=== PATIENT | female | born 1960 | race African-American/Black ===

== ENCOUNTER 2017-02-27 13:55 | Emergency (ER) | payer MEDICARE, MEDICAID ==
[~2017-02-27] VITALS: Ht 165.1 cm; Wt 72.0 kg
[2017-02-27] MEDS ORDERED: ACETAMINOPHEN 325MG TABLET PO STA (14:54)
[2017-02-27 15:18] LABS: CHLORIDE 103 mEq/L (98-107)
[2017-02-27 15:20] LABS: BASOPHILS % 0.7 % (0.0-2.0); EOSINOPHILS % 0.8 % (0.0-5.0); HEMATOCRIT. 38.6 % (36.0-48.0); HEMOGLOBIN. 12.5 g/dL (12.0-16.0); LYMPHOCYTES % 23.7 % (20.0-50.0); MEAN CORPUSCULAR HEMOGLOBIN 31.8 pg (28.0-32.0); MEAN CORPUSCULAR VOLUME 98.3 fL (81.0-99.0); MEAN PLATELET VOLUME 7.4 fl (7.4-10.4); MONOCYTES % 8.4 % (2.0-8.0); NEUTROPHILS % 66.4 % (40.0-76.0); PLATELET 290 x1000/uL (130-400); RED BLOOD CELL COUNT 3.92 mill/uL (4.2-5.4); RED CELL DISTRIBUTION WIDTH 13.9 % (11.6-14.6)
[2017-02-27 15:27] LABS: CARBON DIOXIDE 32 mEq/L (21-32)
[2017-02-27 15:47] LABS: HCG SCREEN NEGATIVE
[2017-02-27 16:34] VITALS: BP 144/72
== END 2017-02-27 16:38 | disposition home or self-care (01) ==
LOC: ER 14:09
DX: R10.9 Unspecified abdominal pain (principal); E11.9 Type 2 diabetes mellitus without complications
CPT/HCPCS: 36415; 80053; 84703; 85025; 99284

== ENCOUNTER 2023-03-10 14:39 | Inpatient (IN) | payer MEDICARE, MEDICAID ==
[~2023-03-10] VITALS: Ht 162.6 cm; Wt 44.0 kg
[~2023-03-10 14:39] MED LIST: APIX2.5T PO; APIX5TAB PO; ASPI-1406 MT
[2023-03-10 16:18] LABS: BASOPHILS % 0.7 % (0.0-2.0); DIFFERENTIAL COMMENT 0; EOSINOPHILS % 0.1 % (0.0-5.0); HEMATOCRIT. 38.8 % (36.0-48.0); HEMOGLOBIN. 12.1 g/dL (12.0-16.0); LYMPHOCYTES % 7.5 % (20.0-50.0); MEAN CORPUSCULAR HEMOGLOBIN 31.9 pg (28.0-32.0); MEAN CORPUSCULAR HGB CONC 31.3 g/dL (31.0-37.0); MEAN CORPUSCULAR VOLUME 101.9 fL (81.0-99.0); MEAN PLATELET VOLUME 7.7 fl (7.4-10.4); MONOCYTES % 2.8 % (2.0-8.0); NEUTROPHILS % 88.9 % (40.0-76.0); PLATELET 352 x1000/uL (130-400); RED BLOOD CELL COUNT 3.81 mill/uL (4.2-5.4); WHITE BLOOD COUNT 7.2 x1000/uL (4.5-11.0)
[2023-03-10 16:54] LABS: ALANINE AMINOTRANSFERASE 13 IU/L (10-49); ALBUMIN 3.3 g/dL (3.2-4.8); ASPARTATE AMINOTRANSFERASE 20 IU/L (<34); BILIRUBIN TOTAL 0.6 mg/dL (0.1-1.0); CARBON DIOXIDE 26 mEq/L (21-32); CHLORIDE 104 mEq/L (98-107); CREATINE KINASE 64 IU/L (34-145); CREATININE 0.9 mg/dL (0.6-1.0); GLUCOSE 186 mg/dL (70-105); POTASSIUM 4.1 mEq/L (3.5-5.1); PROTEIN TOTAL 7.9 g/dL (6.0-8.3); SODIUM 138 mEq/L (136-145); UREA NITROGEN BLOOD 14 mg/dL (9-23)
[2023-03-10] MEDS ORDERED: ONDANSETRON HCL 4MG/2ML INJ IV PRN (21:15)
[2023-03-10] MEDS ORDERED: ACETAMINOPHEN 325MG TABLET PO PRN ×2 (21:15)
[2023-03-10] MEDS ORDERED: IPRATROPIUM/ALBUTEROL 0.5-3(2.5)MG/3ML NEB HHN PRN (21:15)
[2023-03-10] MEDS ORDERED: DEXTROSE 50% WATER 50ML SYRINGE IV PRN ×2 (21:30→22:15)
[2023-03-10] MEDS ORDERED: LORAZEPAM 2MG/ML INJ IV PRN (21:30)
[2023-03-10] MEDS: SODIUM CHLORIDE 0.9% 1,000 ML IV SCH (22:07)
[2023-03-10 22:30] LABS: CHOLESTEROL 147 mg/dL (<200); CREATINE KINASE 65 IU/L (34-145); HDL CHOLESTEROL 33 mg/dL (>65); IRON 41 ug/dL (50-170); LDL CHOLESTEROL 83 mg/dL (5-100); PHOSPHORUS 3.8 mg/dL (2.5-4.9); T4 FREE 1.39 ng/dL (0.89-1.76); THYROID STIMULATING HORMONE 3.64 uIU/mL (0.55-4.78); TOTAL IRON BINDING CAPACITY 169 ug/dl (250-425); TRIGLYCERIDE 70 mg/dL (0-150)
[2023-03-10] MEDS: ASCORBIC ACID 500 MG TABLET PO SCH (23:11)
[2023-03-10] MEDS: APIXABAN 5 MG TABLET PO SCH (23:12)
[2023-03-10] MEDS: ZINC SULFATE 220 MG ( 50 ) CAPSULE PO SCH (23:12)
[2023-03-11] MEDS: PANTOPRAZOLE 40MG DR TABLET PO SCH (07:50)
[2023-03-11] MEDS: BLOOD SUGAR DIAGNOSTIC STRIP TEST SCH ×4 (07:56→21:16)
[2023-03-11] MEDS: INSULIN LISPRO 100 UNITS/ML SUBCUT SCH ×4 (08:10→21:00)
[2023-03-11] MEDS ORDERED: INSULIN LISPRO 100 UNITS/ML SUBCUT SCH (08:20)
[2023-03-11 10:00] VITALS: BP 116/48; PULSE 50; RESP 14; TEMP 98.4
[2023-03-11 10:02] LABS: BASOPHILS % 0.5 % (0.0-2.0); EOSINOPHILS % 0.2 % (0.0-5.0); HEMATOCRIT. 32.5 % (36.0-48.0); HEMOGLOBIN. 10.7 g/dL (12.0-16.0); LYMPHOCYTES % 25.7 % (20.0-50.0); MEAN CORPUSCULAR HEMOGLOBIN 32.8 pg (28.0-32.0); MEAN CORPUSCULAR VOLUME 99.3 fL (81.0-99.0); MEAN PLATELET VOLUME 7.7 fl (7.4-10.4); MONOCYTES % 8.3 % (2.0-8.0); NEUTROPHILS % 65.3 % (40.0-76.0); PLATELET 319 x1000/uL (130-400); RED BLOOD CELL COUNT 3.27 mill/uL (4.2-5.4); RED CELL DISTRIBUTION WIDTH 14.2 % (11.6-14.6); WHITE BLOOD COUNT 3.8 x1000/uL (4.5-11.0)
[2023-03-11] MEDS: ASCORBIC ACID 500 MG TABLET PO SCH (10:17)
[2023-03-11] MEDS: ZINC SULFATE 220 MG ( 50 ) CAPSULE PO SCH (10:17)
[2023-03-11] MEDS: APIXABAN 5 MG TABLET PO SCH ×2 (10:17→17:30)
[2023-03-11 10:20] LABS: CARBON DIOXIDE 31 mEq/L (21-32); CHLORIDE 106 mEq/L (98-107); CREATININE 0.9 mg/dL (0.6-1.0); GLUCOSE 82 mg/dL (70-105); POTASSIUM 4.1 mEq/L (3.5-5.1); SODIUM 141 mEq/L (136-145); UREA NITROGEN BLOOD 13 mg/dL (9-23)
[2023-03-11 12:00] VITALS: BP 141/51; PULSE 55; RESP 20; TEMP 97.7
[2023-03-11 12:04] VITALS: BP 116/48; PULSE 50; RESP 14; TEMP 98.4
[2023-03-11] MEDS: SODIUM CHLORIDE 0.9% 1,000 ML IV SCH (12:23)
[2023-03-11 16:00] VITALS: BP 144/78; PULSE 70; RESP 20; TEMP 97.9
[2023-03-11] MEDS ORDERED: DONE5TAB33 PO ×2 (17:13→17:15)
[2023-03-11 17:26] LABS: FERRITIN 189 ng/mL (10-291); FOLIC ACID (FOLATE) SERUM 18.78 ng/mL (>5.38); VITAMIN B12 SERUM 767 pg/mL (211-911)
[2023-03-11 20:00] VITALS: BP 141/79; PULSE 82; RESP 18; TEMP 97.5
[2023-03-11] MEDS ORDERED: LEVETIRACETAM 500MG/5ML CUP PO SCH (21:00)
[2023-03-12] VITALS: BP 133/44; PULSE 60; RESP 20; TEMP 98
[2023-03-12 04:00] VITALS: BP 126/43; PULSE 54; RESP 18; TEMP 97.7
[2023-03-12] MEDS: SODIUM CHLORIDE 0.9% 1,000 ML IV SCH (05:08)
[2023-03-12] MEDS: INSULIN LISPRO 100 UNITS/ML SUBCUT SCH ×4 (05:31→20:42)
[2023-03-12] MEDS: BLOOD SUGAR DIAGNOSTIC STRIP TEST SCH ×4 (05:31→20:41)
[2023-03-12] MEDS: PANTOPRAZOLE 40MG DR TABLET PO SCH (05:33)
[2023-03-12 08:00] VITALS: BP 95/41; PULSE 62; RESP 17; TEMP 97.7
[2023-03-12] MEDS ORDERED: DEXTROSE 50% WATER 50ML SYRINGE IV NR (08:15)
[2023-03-12] MEDS ORDERED: LEVETIRACETAM 500 MG in SODIUM CHLORIDE 0.9% 100 ML IV SCH (08:15)
[2023-03-12] MEDS: DEXT 5%/0.9% NACL 1,000 ML IV SCH (08:51)
[2023-03-12] MEDS: ZINC SULFATE 220 MG ( 50 ) CAPSULE PO SCH (08:59)
[2023-03-12] MEDS: ASCORBIC ACID 500 MG TABLET PO SCH (08:59)
[2023-03-12] MEDS: APIXABAN 5 MG TABLET PO SCH ×2 (08:59→18:28)
[2023-03-12] MEDS: MIDODRINE HCL 5MG TABLET PO SCH ×3 (09:00→18:27)
[2023-03-12 09:23] LABS: BG BASE EXCESS 2.5 mmol/L (-2.0-2.0); BG CARBOXYHEMOGLOBIN 0.3 % (0.5-1.5); BG DEOXYHEMOGLOBIN 0.9 % (0.0-5.0); BG HCO3 ACT 26.9 mmol/L (22.0-26.0); BG METHEMOGLOBIN 0.1 % (0.0-1.5); BG OXYGEN SATURATION 99.1 % (92.0-98.5); BG OXYHEMOGLOBIN 98.7 % (94.0-97.0); BG PCO2 41.1 mmHg (35.0-45.0); BG PH 7.434 (7.350-7.450); BG PO2 220.9 mmHg (75.0-100.0)
[2023-03-12] MEDS: LEVETIRACETAM 500MG PREMIX 100 ML IV SCH ×2 (10:06→20:58)
[2023-03-12 10:55] LABS: BASOPHILS % 0.3 % (0.0-2.0); EOSINOPHILS % 1.7 % (0.0-5.0); HEMATOCRIT. 29.8 % (36.0-48.0); LYMPHOCYTES % 18.4 % (20.0-50.0); MEAN CORPUSCULAR HGB CONC 33.4 g/dL (31.0-37.0); MEAN CORPUSCULAR VOLUME 98.6 fL (81.0-99.0); MEAN PLATELET VOLUME 7.9 fl (7.4-10.4); MONOCYTES % 8.5 % (2.0-8.0); NEUTROPHILS % 71.1 % (40.0-76.0); PLATELET 303 x1000/uL (130-400); RED BLOOD CELL COUNT 3.02 mill/uL (4.2-5.4); RED CELL DISTRIBUTION WIDTH 13.7 % (11.6-14.6); WHITE BLOOD COUNT 5.5 x1000/uL (4.5-11.0)
[2023-03-12 12:00] VITALS: BP 113/48; PULSE 62; RESP 17; TEMP 98.1
[2023-03-12 13:13] LABS: CALCIUM 8.4 mg/dL (8.7-10.4); CARBON DIOXIDE 27 mEq/L (21-32); CHLORIDE 108 mEq/L (98-107); CREATINE KINASE 130 IU/L (34-145); CREATININE 0.8 mg/dL (0.6-1.0); GLUCOSE 130 mg/dL (70-105); POTASSIUM 3.4 mEq/L (3.5-5.1); SODIUM 142 mEq/L (136-145); UREA NITROGEN BLOOD 10 mg/dL (9-23)
[2023-03-12 16:00] VITALS: BP 111/42; PULSE 55; RESP 17; TEMP 97.8
[2023-03-12 20:00] VITALS: BP 126/38; PULSE 59; RESP 19; TEMP 97.5
[2023-03-12] MEDS: MULTIVITAMINS,THER W-MINERALS TABLET PO SCH (21:03)
[2023-03-13] VITALS: BP 138/34; PULSE 52; RESP 19; TEMP 97.5
[2023-03-13] MEDS: DEXT 5%/0.9% NACL 1,000 ML IV SCH ×2 (03:38→11:10)
[2023-03-13 04:00] VITALS: BP 123/44; PULSE 55; RESP 19; TEMP 97.5
[2023-03-13] MEDS: INSULIN LISPRO 100 UNITS/ML SUBCUT SCH ×2 (05:31→13:22)
[2023-03-13] MEDS: BLOOD SUGAR DIAGNOSTIC STRIP TEST SCH ×2 (05:31→12:59)
[2023-03-13] MEDS ORDERED: FAMOTIDINE 20MG TABLET PO SCH (09:00)
[2023-03-13] MEDS: ASCORBIC ACID 500 MG TABLET PO SCH (09:55)
[2023-03-13] MEDS: APIXABAN 5 MG TABLET PO SCH (09:55)
[2023-03-13] MEDS: MULTIVITAMINS,THER W-MINERALS TABLET PO SCH (09:55)
[2023-03-13] MEDS: ZINC SULFATE 220 MG ( 50 ) CAPSULE PO SCH (09:55)
[2023-03-13] MEDS: MIDODRINE HCL 5MG TABLET PO SCH ×2 (09:56→13:20)
[2023-03-13] MEDS: LEVETIRACETAM 500MG PREMIX 100 ML IV SCH (09:56)
[2023-03-13 14:52] VITALS: BP 119/47; PULSE 64; TEMP 96.1; O2SAT 96
== END 2023-03-13 16:25 | disposition home health service (06) | DRG 40 ==
LOC: ER 14:39 → 7WST 17:17
PROVIDERS: ADMIT Hospitalist; ATTEND Hospitalist
PROC: 4A00X4Z Measurement of Central Nervous Electrical Activity, External Approach (ICD-10-PCS; principal; 2023-03-12)
PROC: 0KBN0ZZ Excision of Right Hip Muscle, Open Approach (ICD-10-PCS; 2023-03-13)
PROC: 0KBP0ZZ Excision of Left Hip Muscle, Open Approach (ICD-10-PCS; 2023-03-13)
DX: G40.89 Other seizures (principal); G92.8 Other toxic encephalopathy; L89.894 Pressure ulcer of other site, stage 4; L89.154 Pressure ulcer of sacral region, stage 4; I82.432 Acute embolism and thrombosis of left popliteal vein; E78.2 Mixed hyperlipidemia; E11.9 Type 2 diabetes mellitus without complications; D75.89 Other specified diseases of blood and blood-forming organs; F03.90 Unspecified dementia, unspecified severity, without behavioral disturbance, psychotic disturbance, mood disturbance, and anxiety; Q90.9 Down syndrome, unspecified; Z86.711 Personal history of pulmonary embolism; Z79.01 Long term (current) use of anticoagulants; Z87.442 Personal history of urinary calculi; Z79.4 Long term (current) use of insulin
CPT/HCPCS: 36415; 36600; 70551; 71045; 80048; 80053; 80061; 82375; 82550; 82607; 82728; 82746; 82805; 82962; 83036; 83540; 83550; 83735; 84100; 84439; 84443; 85025; 93005; 93306; 93970; 95816; 97166; 99285; J1815; J1953; J7042

== ENCOUNTER 2024-02-26 18:34 | Inpatient (IN) | payer MEDICARE, MEDICAID ==
[~2024-02-26] VITALS: Ht 165.1 cm; Wt 44.5 kg
[2024-02-26 17:42] VITALS: RESP 20; O2SAT 95
[~2024-02-26 18:34] MED LIST changes: -APIX2.5T PO; -ASPI-1406 MT; +DONE5TAB33 PO; +ERTA1VIA3 IJ; +LANTUSUD SUBCUT; +LEVE500T19 PO; +MULT-1146 PO; +ZINC1CAP2 PO
[2024-02-26] MEDS ORDERED: NOREPINEPHRINE 8MG/250ML PMX 250 ML IV ONE (18:41)
[2024-02-26 18:55] VITALS: RESP 20; O2SAT 95
[2024-02-26] MEDS ORDERED: FENTANYL 2500MCG/250ML PMX 250 ML IV STA (19:20)
[2024-02-26] MEDS: ROCURONIUM BROMIDE 10MG/ML VIAL 5ML IV ONE (19:35)
[2024-02-26] MEDS: ETOMIDATE 2MG/ML 10ML VIAL IV ONE (19:35)
[2024-02-26] MEDS: SODIUM CHLORIDE 0.9% (SEPSIS BOLUS) IV ONE (19:35)
[2024-02-26] MEDS: NOREPINEPHRINE 8MG/250ML PMX 250 ML IV STA (19:38)
[2024-02-26 19:45] LABS: BASOPHILS % 0.7 % (0.0-2.0); DIFFERENTIAL COMMENT 0; EOSINOPHILS % 0.1 % (0.0-5.0); HEMATOCRIT. 31.7 % (36.0-48.0); HEMOGLOBIN. 9.8 g/dL (12.0-16.0); LYMPHOCYTES % 10.9 % (20.0-50.0); MEAN CORPUSCULAR HEMOGLOBIN 31.5 pg (28.0-32.0); MEAN CORPUSCULAR VOLUME 101.5 fL (81.0-99.0); MEAN PLATELET VOLUME 7.5 fl (7.4-10.4); MONOCYTES % 3.2 % (2.0-8.0); NEUTROPHILS % 85.1 % (40.0-76.0); PLATELET 408 x1000/uL (130-400); RED BLOOD CELL COUNT 3.13 mill/uL (4.2-5.4); WHITE BLOOD COUNT 2.7 x1000/uL (4.5-11.0)
[2024-02-26] MEDS: VANCOMYCIN 1G PREMIX 200 ML IV ONE (19:47)
[2024-02-26 19:55] LABS: CHLORIDE 107 mEq/L (98-107); POTASSIUM 3.8 mEq/L (3.5-5.1); SODIUM 140 mEq/L (136-145)
[2024-02-26 19:56] LABS: CARBON DIOXIDE 21 mEq/L (21-32)
[2024-02-26 19:57] LABS: CALCIUM 8.5 mg/dL (8.7-10.4)
[2024-02-26] MEDS: PROPOFOL 10MG/ML 100ML 100 ML IV STA (19:58)
[2024-02-26 20:01] LABS: CREATININE 1.1 mg/dL (0.6-1.0); GLUCOSE 196 mg/dL (70-105)
[2024-02-26 20:02] LABS: UREA NITROGEN BLOOD 23 mg/dL (9-23)
[2024-02-26 20:03] LABS: ALANINE AMINOTRANSFERASE 32 IU/L (10-49); ASPARTATE AMINOTRANSFERASE 61 IU/L (<34)
[2024-02-26 20:04] LABS: ALBUMIN 2.6 g/dL (3.2-4.8); BILIRUBIN DIRECT 0.2 mg/dL (<=3.0); BILIRUBIN TOTAL 0.6 mg/dL (0.1-1.0); PROTEIN TOTAL 6.8 g/dL (6.0-8.3)
[2024-02-26] MEDS ORDERED: CEFEPIME 1GM IN DEXT 5% 50ML IV ONE (20:45)
[2024-02-26 20:53] LABS: LACTIC ACID 8.3 mmol/L (0.4-2.0); TROPONIN I HIGH SENSITIVITY 56 ng/L (3.0-34)
[2024-02-26] MEDS ORDERED: SODIUM CHLORIDE 0.9% 1,000 ML, SODIUM CHLORIDE 0.9% 1,000 ML IV NR (21:34)
[2024-02-26] MEDS: FENTANYL CITRATE 2,500 MCG in SODIUM CHLORIDE 0.9% 200 ML IV PRN (21:36)
[2024-02-26] MEDS: CEFEPIME 1GM/50ML 50 ML IV NR (21:36)
[2024-02-26 21:45] VITALS: PULSE 99; RESP 25; O2SAT 99
[2024-02-26 22:10] LABS: INR 1.2; PROTHROMBIN TIME 13.4 sec (9.6-11.0)
[2024-02-26] MEDS ORDERED: DEXTROSE 50% WATER 50ML SYRINGE IV PRN (22:15)
[2024-02-26] MEDS ORDERED: MAGNESIUM/ALUMINUM HYDROXIDE/SIMETHICONE 30ML UDC PO PRN (22:15)
[2024-02-26] MEDS ORDERED: DOCUSATE SODIUM 100MG CAPSULE PO PRN (22:15)
[2024-02-26] MEDS ORDERED: ONDANSETRON HCL 4MG/2ML INJ IV PRN (22:15)
[2024-02-26] MEDS ORDERED: GUAIFENESIN 200MG/10ML SUGAR FREE UDC PO PRN (22:15)
[2024-02-26] MEDS ORDERED: CLONIDINE 0.1MG TABLET PO PRN (22:15)
[2024-02-26 22:21] LABS: BG BASE EXCESS -6.8 mmol/L (-2.0-3.0); BG CARBOXYHEMOGLOBIN 0.6 % (0.5-1.5); BG DEOXYHEMOGLOBIN 2.3 % (0.0-5.0); BG FRACTION INSPIRED OXYGEN 100; BG HCO3 ACT 18.1 mmol/L (21.0-28.0); BG METHEMOGLOBIN 0.3 % (0.5-1.5); BG OXYGEN SATURATION 97.7 % (94.0-98.0); BG OXYHEMOGLOBIN 96.8 % (94.0-98.0); BG PCO2 34.4 mmHg (32.0-45.0); BG PH 7.339 (7.350-7.450); BG PO2 111.4 mmHg (83.0-108.0); BG SAMPLE SITE LEFT FEMORAL; BG TOTAL HEMOGLOBIN 12.9 g/dL (12.0-16.0); BG VENT MODE VENT - AC
[2024-02-26] MEDS ORDERED: MEROPENEM 1,000 MG in SODIUM CHLORIDE 0.9% 100 ML IV SCH (22:30)
[2024-02-26] MEDS: PANTOPRAZOLE SODIUM 40 MG/VIAL IV SCH (23:05)
[2024-02-26 23:18] LABS: IRON 42 ug/dL (50-170)
[2024-02-26 23:21] LABS: PHOSPHORUS 5.3 mg/dL (2.5-4.9); TOTAL IRON BINDING CAPACITY 329 ug/dl (250-425)
[2024-02-26 23:26] LABS: CLARITY URINE CLOUDY (CLEAR); COLOR URINE YELLOW (YELLOW); GLUCOSE URINE NEGATIVE (NEGATIVE); KETONES URINE NEGATIVE (NEGATIVE); PH URINE 6.5 (4.5-8.0); PROTEIN URINE 1+ (NEGATIVE); SPECIFIC GRAVITY URINE 1.016 (1.005-1.030)
[2024-02-26 23:27] LABS: LEUKOCYTE ESTERASE URINE 2+ (NEGATIVE); NITRITE URINE NEGATIVE (NEGATIVE); OCCULT BLOOD URINE 2+ (NEGATIVE); UROBILINOGEN URINE 0.2 E.U./dL (0.2-1.0)
[2024-02-26] MEDS ORDERED: PHENYLEPHRINE 50 MG in SODIUM CHLORIDE 0.9% 245 ML IV PRN (23:30)
[2024-02-26 23:34] LABS: BACTERIA URINE 2+; SQUAMOUS EPITHELIAL CELL URINE 1+ /lpf (RARE/1+)
[2024-02-26] MEDS: MEROPENEM 1GM/50ML DUPLEX 50 ML IV SCH (23:35)
[2024-02-26 23:37] VITALS: PULSE 79; RESP 20; O2SAT 97
[2024-02-26] MEDS: IPRATROPIUM/ALBUTEROL 0.5-3(2.5)MG/3ML NEB HHN SCH (23:37)
[2024-02-27] VITALS (111 sets, daily range): BP systolic 44–163; BP diastolic 27–91; PULSE 59–104; RESP 12–27; TEMP 34.472–37.503; O2SAT 99–100
[2024-02-27 00:12] LABS: FOLIC ACID (FOLATE) SERUM 15.12 ng/mL (>5.38)
[2024-02-27 00:13] LABS: VITAMIN B12 SERUM 566 pg/mL (211-911)
[2024-02-27 00:14] LABS: FERRITIN 861 ng/mL (10-291)
[2024-02-27 01:32] LABS: HIV 1/2 AB P24AG Negative (Negative)
[2024-02-27] MEDS: DEXT 5%/0.9% NACL 1,000 ML IV NR (01:45)
[2024-02-27] MEDS: PHENYLEPHRINE 100 MG in DEXT 5% WATER 250 ML IV PRN (01:59)
[2024-02-27] MEDS: NOREPINEPHRINE 32 MG in DEXT 5% WATER 218 ML IV PRN (03:13)
[2024-02-27] MEDS ORDERED: SODIUM CHLORIDE 0.9% 1,000 ML IV NR (04:12)
[2024-02-27] MEDS: SODIUM CHLORIDE 0.9% 1,000 ML IV SCH ×2 (04:15→21:30)
[2024-02-27] MEDS: HYDROCORTISONE SOD SUCCINATE 100 MG/2 ML VIAL IV SCH (04:41)
[2024-02-27] MEDS: VASOPRESSIN 20 UNIT in SODIUM CHLORIDE 0.9% 99 ML IV PRN (04:42)
[2024-02-27 05:35] LABS: POTASSIUM 4.6 mEq/L (3.5-5.1)
[2024-02-27 05:41] LABS: CREATININE 1.3 mg/dL (0.6-1.0)
[2024-02-27 05:43] LABS: CREATINE KINASE 57 IU/L (34-145)
[2024-02-27 05:44] LABS: T4 FREE 1.1 ng/dL (0.89-1.76); THYROID STIMULATING HORMONE 13.46 uIU/mL (0.55-4.78)
[2024-02-27 05:47] LABS: TROPONIN I HIGH SENSITIVITY 391 ng/L (3.0-34)
[2024-02-27 05:48] LABS: DIFFERENTIAL COMMENT 0; EOSINOPHILS % 0.8 % (0.0-5.0); HEMATOCRIT. 25.9 % (36.0-48.0); HEMOGLOBIN. 8.4 g/dL (12.0-16.0); LYMPHOCYTES % 17.4 % (20.0-50.0); MEAN CORPUSCULAR HEMOGLOBIN 32.8 pg (28.0-32.0); MEAN CORPUSCULAR HGB CONC 32.5 g/dL (31.0-37.0); MEAN CORPUSCULAR VOLUME 100.7 fL (81.0-99.0); MEAN PLATELET VOLUME 7.8 fl (7.4-10.4); MONOCYTES % 4.7 % (2.0-8.0); NEUTROPHILS % 76.1 % (40.0-76.0); PLATELET 353 x1000/uL (130-400); RED BLOOD CELL COUNT 2.57 mill/uL (4.2-5.4); RED CELL DISTRIBUTION WIDTH 18.9 % (11.6-14.6); WHITE BLOOD COUNT 3.5 x1000/uL (4.5-11.0)
[2024-02-27] MEDS: BLOOD SUGAR DIAGNOSTIC STRIP TEST SCH (05:57)
[2024-02-27] MEDS: INSULIN LISPRO 100 UNITS/ML SUBCUT SCH (06:36)
[2024-02-27 07:20] LABS: HEPATITIS B SURFACE ANTIGEN NEGATIVE
[2024-02-27 07:21] LABS: HEPATITIS C VIR.AB 0.13 INDEXVAL (0.00-0.80)
[2024-02-27] MEDS ORDERED: VANCOMYCIN 500MG PREMIX 100 ML IV SCH (08:00)
[2024-02-27] MEDS: LEVETIRACETAM 500MG TABLET PO SCH (08:09)
[2024-02-27] MEDS: VANCOMYCIN 500MG PREMIX 100 ML IV SCH (08:54)
[2024-02-27] MEDS ORDERED: BLOOD SUGAR DIAGNOSTIC STRIP TEST SCH (09:00)
[2024-02-27] MEDS: ENOXAPARIN 30MG/0.3ML SYR SUBCUT SCH (10:02)
[2024-02-27 13:08] LABS: TROPONIN I HIGH SENSITIVITY 661 ng/L (3.0-34)
[2024-02-27] MEDS ORDERED: MEROPENEM 1GM/50ML DUPLEX 50 ML IV SCH (14:00)
[2024-02-27] MEDS: AZITHROMYCIN 500MG/250ML 250 ML IV SCH (14:17)
[2024-02-27 15:19] LABS: BG CARBOXYHEMOGLOBIN 1.3 % (0.5-1.5); BG DEOXYHEMOGLOBIN 0.6 % (0.0-5.0); BG FRACTION INSPIRED OXYGEN 60; BG METHEMOGLOBIN 0.1 % (0.5-1.5); BG OXYGEN SATURATION 99.4 % (94.0-98.0); BG PCO2 37.5 mmHg (32.0-45.0); BG PH 7.366 (7.350-7.450); BG PO2 149.9 mmHg (83.0-108.0); BG SAMPLE SITE RIGHT RADIAL; BG TOTAL HEMOGLOBIN 5.3 g/dL (12.0-16.0); BG VENT MODE VENT - AC
[2024-02-27] MEDS: MEROPENEM 500MG/50ML 50 ML IV SCH (17:11)
[2024-02-27 18:26] LABS: CREATINE KINASE 315 IU/L (34-145)
[2024-02-27 18:29] LABS: TROPONIN I HIGH SENSITIVITY 2228 ng/L (3.0-34)
[2024-02-27] MEDS: ASPIRIN 81MG TABLET PO SCH (19:18)
[2024-02-27 19:58] LABS: HEMATOCRIT 26.2 % (36.0-48.0); HEMOGLOBIN 8.2 g/dL (12.0-16.0); MEAN CORPUSCULAR HEMOGLOBIN 32.2 pg (28.0-32.0); MEAN CORPUSCULAR HGB CONC 31.2 g/dL (31.0-37.0); MEAN CORPUSCULAR VOLUME 102.9 fL (81.0-99.0); PLATELET 291 x1000/uL (130-400); RED BLOOD CELL COUNT 2.55 mill/uL (4.2-5.4); RED CELL DISTRIBUTION WIDTH 18.9 % (11.6-14.6); WHITE BLOOD COUNT 13.8 x1000/uL (4.5-11.0)
[2024-02-27] MEDS: ATORVASTATIN CALCIUM 40MG TABLET PO SCH (22:19)
[2024-02-27 23:06] LABS: TROPONIN I HIGH SENSITIVITY 4119 ng/L (3.0-34)
[2024-02-28] VITALS (106 sets, daily range): BP systolic 78–137; BP diastolic 41–101; PULSE 46–127; RESP 7–31; TEMP 36.9474–37.503; O2SAT 95–100
[2024-02-28 05:53] LABS: CHLORIDE 112 mEq/L (98-107); POTASSIUM 3.6 mEq/L (3.5-5.1); SODIUM 143 mEq/L (136-145)
[2024-02-28 05:54] LABS: CARBON DIOXIDE 24 mEq/L (21-32)
[2024-02-28 05:55] LABS: CALCIUM 7.8 mg/dL (8.7-10.4)
[2024-02-28 05:59] LABS: CREATININE 0.9 mg/dL (0.6-1.0); GLUCOSE 141 mg/dL (70-105); UREA NITROGEN BLOOD 20 mg/dL (9-23)
[2024-02-28 06:10] LABS: TROPONIN I HIGH SENSITIVITY 4537 ng/L (3.0-34)
[2024-02-28 08:24] LABS: MEAN CORPUSCULAR HEMOGLOBIN 31.4 pg (28.0-32.0); MEAN CORPUSCULAR HGB CONC 32.2 g/dL (31.0-37.0); MEAN CORPUSCULAR VOLUME 97.6 fL (81.0-99.0); MEAN PLATELET VOLUME 7.6 fl (7.4-10.4); PLATELET 270 x1000/uL (130-400); RED BLOOD CELL COUNT 2.27 mill/uL (4.2-5.4); RED CELL DISTRIBUTION WIDTH 18.6 % (11.6-14.6); WHITE BLOOD COUNT 13.2 x1000/uL (4.5-11.0)
[2024-02-28 08:42] LABS: DIFFERENTIAL COMMENT 1
[2024-02-28 08:45] LABS: HEMATOCRIT. 22.2 % (36.0-48.0); HEMOGLOBIN. 7.1 g/dL (12.0-16.0)
[2024-02-28] MEDS: ALBUMIN HUMAN 25GM/100ML (25%) IV NR (08:45)
[2024-02-28 08:47] LABS: BG BASE EXCESS -1.5 mmol/L (-2.0-3.0); BG CARBOXYHEMOGLOBIN 0.5 % (0.5-1.5); BG DEOXYHEMOGLOBIN 1.2 % (0.0-5.0); BG FRACTION INSPIRED OXYGEN 40; BG HCO3 ACT 22.4 mmol/L (21.0-28.0); BG OXYGEN SATURATION 98.8 % (94.0-98.0); BG OXYHEMOGLOBIN 98.3 % (94.0-98.0); BG PCO2 33.5 mmHg (32.0-45.0); BG PH 7.443 (7.350-7.450); BG SAMPLE SITE RIGHT RADIAL; BG TOTAL HEMOGLOBIN 6.9 g/dL (12.0-16.0); BG VENT MODE VENT - AC
[2024-02-28] MEDS: VANCOMYCIN 500MG PREMIX 100 ML IV SCH (09:03)
[2024-02-28 11:13] LABS: PHOSPHORUS 2.7 mg/dL (2.5-4.9)
[2024-02-28 16:47] LABS: TROPONIN I HIGH SENSITIVITY 4176 ng/L (3.0-34)
[2024-02-28] MEDS: MIDODRINE HCL 5MG TABLET PO SCH (17:36)
[2024-02-28 19:38] LABS: PLATELET ESTIMATE NORMAL
[2024-02-28] MEDS: LACTATED RINGERS 1,000 ML IV SCH (20:02)
[2024-02-28] MEDS: MAGNESIUM 2 G PREMIX 50 ML IV NR (20:13)
[2024-02-28] MEDS: PANTOPRAZOLE SODIUM 40 MG/VIAL IV SCH (21:39)
[2024-02-29] VITALS (103 sets, daily range): BP systolic 85–157; BP diastolic 44–82; PULSE 38–88; RESP 9–33; TEMP 36.6696–37.11408; O2SAT 94–100
[2024-02-29 00:34] LABS: TROPONIN I HIGH SENSITIVITY 3891 ng/L (3.0-34)
[2024-02-29 05:46] LABS: HEMATOCRIT. 28.3 % (36.0-48.0); MEAN CORPUSCULAR HGB CONC 32.8 g/dL (31.0-37.0); MEAN CORPUSCULAR VOLUME 94.7 fL (81.0-99.0); MEAN PLATELET VOLUME 8.5 fl (7.4-10.4); PLATELET 230 x1000/uL (130-400); RED BLOOD CELL COUNT 2.99 mill/uL (4.2-5.4); RED CELL DISTRIBUTION WIDTH 18.3 % (11.6-14.6); WHITE BLOOD COUNT 13.7 x1000/uL (4.5-11.0)
[2024-02-29 05:48] LABS: CHLORIDE 112 mEq/L (98-107); POTASSIUM 3.6 mEq/L (3.5-5.1); SODIUM 143 mEq/L (136-145)
[2024-02-29 05:49] LABS: CALCIUM 8.5 mg/dL (8.7-10.4); CARBON DIOXIDE 24 mEq/L (21-32)
[2024-02-29 05:54] LABS: CREATININE 0.9 mg/dL (0.6-1.0); GLUCOSE 188 mg/dL (70-105); UREA NITROGEN BLOOD 17 mg/dL (9-23)
[2024-02-29 05:56] LABS: PHOSPHORUS 2.4 mg/dL (2.5-4.9)
[2024-02-29 07:16] LABS: DIFFERENTIAL COMMENT 1
[2024-02-29 07:18] LABS: HEMOGLOBIN. 9.3 g/dL (12.0-16.0)
[2024-02-29] MEDS ORDERED: ATROPINE SULFATE 1MG/10ML SYR IV PRN (09:15)
[2024-02-29 12:25] LABS: BG BASE EXCESS -2.7 mmol/L (-2.0-3.0); BG CARBOXYHEMOGLOBIN 0.1 % (0.5-1.5); BG DEOXYHEMOGLOBIN 1.7 % (0.0-5.0); BG FRACTION INSPIRED OXYGEN 30; BG HCO3 ACT 20.6 mmol/L (21.0-28.0); BG METHEMOGLOBIN 0.3 % (0.5-1.5); BG OXYGEN SATURATION 98.3 % (94.0-98.0); BG OXYHEMOGLOBIN 97.9 % (94.0-98.0); BG PCO2 30.5 mmHg (32.0-45.0); BG PH 7.448 (7.350-7.450); BG PO2 109.2 mmHg (83.0-108.0); BG SAMPLE SITE RIGHT RADIAL; BG TOTAL HEMOGLOBIN 9.8 g/dL (12.0-16.0); BG VENT MODE VENT - CPAP
[2024-02-29 13:10] LABS: ATYPICAL LYMPHOCYTES 1
[2024-02-29 13:11] LABS: ANISOCYTOSIS 1+; PLATELET ESTIMATE NORMAL
[2024-02-29] MEDS ORDERED: CEFEPIME 2GM IN DEXT 5% 100ML IV SCH (17:00)
[2024-02-29] MEDS: MIDODRINE HCL 5MG TABLET PO SCH (17:53)
[2024-02-29] MEDS ORDERED: MEROPENEM 1GM/50ML DUPLEX 50 ML IV SCH (18:00)
[2024-02-29] MEDS: CEFEPIME 2GM/50ML DUPLEX 50 ML IV SCH (21:44)
[2024-03-01] VITALS (106 sets, daily range): BP systolic 81–156; BP diastolic 41–106; PULSE 36–74; RESP 9–30; TEMP 36.50292–36.83628; O2SAT 92–100
[2024-03-01 06:28] LABS: CHLORIDE 112 mEq/L (98-107); POTASSIUM 3.6 mEq/L (3.5-5.1); SODIUM 143 mEq/L (136-145)
[2024-03-01 06:29] LABS: CALCIUM 8.2 mg/dL (8.7-10.4); CARBON DIOXIDE 25 mEq/L (21-32)
[2024-03-01 06:34] LABS: CREATININE 0.8 mg/dL (0.6-1.0); GLUCOSE 235 mg/dL (70-105); UREA NITROGEN BLOOD 18 mg/dL (9-23)
[2024-03-01 06:36] LABS: ALBUMIN 2.3 g/dL (3.2-4.8); PHOSPHORUS 2.5 mg/dL (2.5-4.9)
[2024-03-01 06:52] LABS: PREALBUMIN < 5.0 mg/dl (10.0-40.0)
[2024-03-01 08:24] LABS: HEMATOCRIT. 25.8 % (36.0-48.0); HEMOGLOBIN. 8.5 g/dL (12.0-16.0); MEAN CORPUSCULAR HEMOGLOBIN 31.5 pg (28.0-32.0); MEAN CORPUSCULAR HGB CONC 33.1 g/dL (31.0-37.0); MEAN PLATELET VOLUME 8.3 fl (7.4-10.4); PLATELET 171 x1000/uL (130-400); RED BLOOD CELL COUNT 2.72 mill/uL (4.2-5.4); RED CELL DISTRIBUTION WIDTH 18.2 % (11.6-14.6); WHITE BLOOD COUNT 10.2 x1000/uL (4.5-11.0)
[2024-03-01 08:52] LABS: DIFFERENTIAL COMMENT 1
[2024-03-01] MEDS: LIDOCAINE HCL 1% 10 MG/ML 10ML VIAL ONE (08:56)
[2024-03-01] MEDS: IOHEXOL-350 100 ML BOTTLE ONE (08:56)
[2024-03-01] MEDS ORDERED: MIDODRINE HCL 5MG TABLET PO SCH ×2 (10:30→13:00)
[2024-03-01] MEDS: AZITHROMYCIN 500MG/250ML 250 ML IV SCH (13:48)
[2024-03-01] MEDS: IPRATROPIUM/ALBUTEROL 0.5-3(2.5)MG/3ML NEB HHN PRN (16:28)
[2024-03-01 16:49] LABS: ANISOCYTOSIS 2+; PLATELET ESTIMATE NORMAL
[2024-03-01] MEDS: ACETAMINOPHEN 650MG/20.3ML UDC PO PRN (18:06)
[2024-03-01] MEDS: DOPAMINE 400MG/250ML PREMIX 250 ML IV PRN (19:18)
[2024-03-02] VITALS (101 sets, daily range): BP systolic 83–145; BP diastolic 37–92; PULSE 41–103; RESP 0–28; TEMP 36.50292–36.6696; O2SAT 93–100
[2024-03-02 06:11] LABS: HEMATOCRIT. 30.9 % (36.0-48.0); HEMOGLOBIN. 10.1 g/dL (12.0-16.0); MEAN CORPUSCULAR HEMOGLOBIN 31.2 pg (28.0-32.0); MEAN CORPUSCULAR HGB CONC 32.8 g/dL (31.0-37.0); MEAN PLATELET VOLUME 8.9 fl (7.4-10.4); PLATELET 203 x1000/uL (130-400); RED BLOOD CELL COUNT 3.25 mill/uL (4.2-5.4); RED CELL DISTRIBUTION WIDTH 18.2 % (11.6-14.6); WHITE BLOOD COUNT 7.9 x1000/uL (4.5-11.0)
[2024-03-02 06:33] LABS: CALCIUM 8.1 mg/dL (8.7-10.4); CHLORIDE 110 mEq/L (98-107); POTASSIUM 3.3 mEq/L (3.5-5.1); SODIUM 145 mEq/L (136-145)
[2024-03-02 06:34] LABS: CARBON DIOXIDE 28 mEq/L (21-32)
[2024-03-02 06:39] LABS: CREATININE 0.9 mg/dL (0.6-1.0); GLUCOSE 218 mg/dL (70-105)
[2024-03-02 06:40] LABS: UREA NITROGEN BLOOD 18 mg/dL (9-23)
[2024-03-02 07:53] LABS: DIFFERENTIAL COMMENT 1
[2024-03-02] MEDS: KCL 20MEQ/100ML PREMIX 100 ML IV NR (08:30)
[2024-03-02] MEDS: MULTIVITAMINS,THER W-MINERALS TABLET PO SCH (08:31)
[2024-03-02] MEDS ORDERED: LACTATED RINGERS 1,000 ML IV ONE (09:45)
[2024-03-02] MEDS: LACTATED RINGERS 1,000 ML IV ONE (12:43)
[2024-03-02 13:49] LABS: ANISOCYTOSIS 1+; PLATELET ESTIMATE NORMAL
[2024-03-02] MEDS: DOPAMINE 800MG PREMIX (DOUBLE) 250 ML IV PRN (19:13)
[2024-03-02] MEDS ORDERED: NOREPINEPHRINE 8MG/250ML PMX 250 ML IV PRN (19:45)
[2024-03-03] VITALS (96 sets, daily range): BP systolic 74–132; BP diastolic 45–78; PULSE 47–113; RESP 0–24; TEMP 36.89184–37.11408; O2SAT 89–100
[2024-03-03 05:52] LABS: CALCIUM 7.9 mg/dL (8.7-10.4); CARBON DIOXIDE 30 mEq/L (21-32); CHLORIDE 107 mEq/L (98-107); SODIUM 144 mEq/L (136-145)
[2024-03-03 05:58] LABS: CREATININE 0.7 mg/dL (0.6-1.0); GLUCOSE 293 mg/dL (70-105); UREA NITROGEN BLOOD 24 mg/dL (9-23)
[2024-03-03 06:08] LABS: HEMATOCRIT. 32.2 % (36.0-48.0); HEMOGLOBIN. 10.6 g/dL (12.0-16.0); MEAN CORPUSCULAR HEMOGLOBIN 30.7 pg (28.0-32.0); MEAN CORPUSCULAR HGB CONC 32.8 g/dL (31.0-37.0); MEAN CORPUSCULAR VOLUME 93.5 fL (81.0-99.0); MEAN PLATELET VOLUME 9.3 fl (7.4-10.4); PLATELET 228 x1000/uL (130-400); RED BLOOD CELL COUNT 3.44 mill/uL (4.2-5.4); RED CELL DISTRIBUTION WIDTH 17.2 % (11.6-14.6); WHITE BLOOD COUNT 14.1 x1000/uL (4.5-11.0)
[2024-03-03 06:10] LABS: POTASSIUM 2.8 mEq/L (3.5-5.1)
[2024-03-03] MEDS: KCL 20MEQ/100ML PREMIX 100 ML IV SCH (06:23)
[2024-03-03 09:23] LABS: DIFFERENTIAL COMMENT 1
[2024-03-03] MEDS: INSULIN LISPRO 100 UNITS/ML SUBCUT SCH (12:07)
[2024-03-03] MEDS: LACTATED RINGERS 1,000 ML IV ONE (12:07)
[2024-03-03] MEDS: MAGNESIUM 2 G PREMIX 50 ML IV NR (12:13)
[2024-03-03 20:27] LABS: PLATELET ESTIMATE NORMAL
[2024-03-04] VITALS (56 sets, daily range): BP systolic 90–130; BP diastolic 48–85; PULSE 46–87; RESP 10–27; TEMP 36.50292–37.00296; O2SAT 91–98
[2024-03-04] MEDS: HYDROCODONE/ACETAMINOPHEN 5/325MG TABLET PO PRN (00:30)
[2024-03-04 06:07] LABS: CALCIUM 7.8 mg/dL (8.7-10.4); CARBON DIOXIDE 33 mEq/L (21-32); CHLORIDE 106 mEq/L (98-107); HEMATOCRIT. 31.3 % (36.0-48.0); HEMOGLOBIN. 10.1 g/dL (12.0-16.0); MEAN CORPUSCULAR HGB CONC 32.3 g/dL (31.0-37.0); MEAN CORPUSCULAR VOLUME 95.8 fL (81.0-99.0); MEAN PLATELET VOLUME 9.8 fl (7.4-10.4); PLATELET 221 x1000/uL (130-400); POTASSIUM 3.5 mEq/L (3.5-5.1); RED BLOOD CELL COUNT 3.26 mill/uL (4.2-5.4); RED CELL DISTRIBUTION WIDTH 17.8 % (11.6-14.6); SODIUM 143 mEq/L (136-145); WHITE BLOOD COUNT 15.1 x1000/uL (4.5-11.0)
[2024-03-04 06:12] LABS: CREATININE 0.7 mg/dL (0.6-1.0)
[2024-03-04 06:13] LABS: GLUCOSE 139 mg/dL (70-105); UREA NITROGEN BLOOD 22 mg/dL (9-23)
[2024-03-04 06:15] LABS: PHOSPHORUS 2.1 mg/dL (2.5-4.9)
[2024-03-04 06:30] LABS: DIFFERENTIAL COMMENT 1
[2024-03-04] MEDS ORDERED: NALOXONE HCL 0.4MG/ML VIAL IV PRN (08:00)
[2024-03-04] MEDS: POTASSIUM PHOSPHATE 20 MMOL in DEXT 5% WATER 243.3333 ML IV NR (10:10)
[2024-03-04] MEDS: MAGNESIUM 1 G PREMIX 100 ML IV NR (10:52)
[2024-03-04 11:08] LABS: PLATELET ESTIMATE NORMAL
[2024-03-04 11:10] LABS: ANISOCYTOSIS 1+
[2024-03-04] MEDS: MIDODRINE HCL 5MG TABLET PO SCH (13:37)
[2024-03-04] MEDS: SODIUM CHLORIDE 0.45% 1,000 ML IV ONE (13:44)
[2024-03-04] MEDS: ENOXAPARIN 40MG/0.4ML SYR SUBCUT SCH (21:44)
[2024-03-04] MEDS: HYDROCORTISONE SOD SUCCINATE 100 MG/2 ML VIAL IV SCH (21:49)
[2024-03-05] VITALS: BP 123/56; PULSE 74; RESP 18; TEMP 36.44736; O2SAT 95
[2024-03-05 04:00] VITALS: BP 95/57; PULSE 62; RESP 16; TEMP 37.16964; O2SAT 96
[2024-03-05 08:00] VITALS: BP 109/33; PULSE 55; RESP 18; TEMP 36.72516; O2SAT 97
[2024-03-05 12:00] VITALS: BP 91/55; PULSE 72; RESP 22; TEMP 36.3918; O2SAT 95
[2024-03-05 15:52] LABS: BASOPHILS % 0.1 % (0.0-2.0); EOSINOPHILS % 0.1 % (0.0-5.0); HEMATOCRIT. 32.2 % (36.0-48.0); HEMOGLOBIN. 10.5 g/dL (12.0-16.0); LYMPHOCYTES % 12.2 % (20.0-50.0); MEAN CORPUSCULAR HEMOGLOBIN 31.1 pg (28.0-32.0); MEAN CORPUSCULAR HGB CONC 32.7 g/dL (31.0-37.0); MEAN CORPUSCULAR VOLUME 95.1 fL (81.0-99.0); MEAN PLATELET VOLUME 10.5 fl (7.4-10.4); MONOCYTES % 3.4 % (2.0-8.0); NEUTROPHILS % 84.2 % (40.0-76.0); PLATELET 213 x1000/uL (130-400); RED BLOOD CELL COUNT 3.38 mill/uL (4.2-5.4); RED CELL DISTRIBUTION WIDTH 17.7 % (11.6-14.6); WHITE BLOOD COUNT 7.5 x1000/uL (4.5-11.0)
[2024-03-05 16:00] VITALS: BP 105/53; PULSE 60; RESP 18; TEMP 36.3918; O2SAT 97
[2024-03-05 16:05] LABS: CARBON DIOXIDE 30 mEq/L (21-32); CHLORIDE 103 mEq/L (98-107); POTASSIUM 3.7 mEq/L (3.5-5.1); SODIUM 138 mEq/L (136-145)
[2024-03-05 16:06] LABS: CALCIUM 7.5 mg/dL (8.7-10.4)
[2024-03-05 16:10] LABS: CREATININE 0.6 mg/dL (0.6-1.0)
[2024-03-05 16:11] LABS: GLUCOSE 199 mg/dL (70-105); UREA NITROGEN BLOOD 22 mg/dL (9-23)
[2024-03-05] MEDS: SODIUM CHLORIDE 0.9% 500 ML IV ONE ×2 (17:05→18:57)
[2024-03-05 20:00] VITALS: BP 111/79; PULSE 60; RESP 18; TEMP 36.61404; O2SAT 97
[2024-03-05] MEDS: SODIUM CHLORIDE 0.9% 1,000 ML IV SCH (20:59)
[2024-03-05] MEDS: MIDODRINE HCL 5MG TABLET PO SCH (21:02)
[2024-03-06] VITALS: BP 143/74; PULSE 64; RESP 19; TEMP 36.6696; O2SAT 99
[2024-03-06 04:00] VITALS: BP 116/63; PULSE 62; RESP 18; TEMP 36.6696; O2SAT 97
[2024-03-06 07:57] LABS: CARBON DIOXIDE 28 mEq/L (21-32); CHLORIDE 107 mEq/L (98-107); POTASSIUM 3.6 mEq/L (3.5-5.1); SODIUM 142 mEq/L (136-145)
[2024-03-06 07:58] LABS: CALCIUM 7.6 mg/dL (8.7-10.4)
[2024-03-06 08:00] VITALS: BP 110/69; PULSE 76; RESP 20; TEMP 36.33624; O2SAT 95
[2024-03-06 08:00] LABS: BASOPHILS % 0.1 % (0.0-2.0); HEMATOCRIT. 34.2 % (36.0-48.0); HEMOGLOBIN. 11.2 g/dL (12.0-16.0); LYMPHOCYTES % 8.7 % (20.0-50.0); MEAN CORPUSCULAR HEMOGLOBIN 31.6 pg (28.0-32.0); MEAN CORPUSCULAR HGB CONC 32.7 g/dL (31.0-37.0); MEAN CORPUSCULAR VOLUME 96.5 fL (81.0-99.0); MEAN PLATELET VOLUME 10.4 fl (7.4-10.4); MONOCYTES % 3.5 % (2.0-8.0); NEUTROPHILS % 87.7 % (40.0-76.0); PLATELET 247 x1000/uL (130-400); RED BLOOD CELL COUNT 3.54 mill/uL (4.2-5.4); RED CELL DISTRIBUTION WIDTH 17.8 % (11.6-14.6); WHITE BLOOD COUNT 7.2 x1000/uL (4.5-11.0)
[2024-03-06 08:03] LABS: CREATININE 0.6 mg/dL (0.6-1.0); GLUCOSE 147 mg/dL (70-105); UREA NITROGEN BLOOD 21 mg/dL (9-23)
[2024-03-06 12:00] VITALS: BP 116/51; PULSE 81; RESP 18; TEMP 36.33624; O2SAT 97
[2024-03-06 16:00] VITALS: BP 115/57; PULSE 78; RESP 20; TEMP 36.33624; O2SAT 95
[2024-03-06 20:00] VITALS: BP 131/71; PULSE 85; RESP 19; TEMP 36.3918; O2SAT 100
[2024-03-06] MEDS: LEVETIRACETAM 500MG/5ML CUP NG SCH (22:25)
[2024-03-07] VITALS: BP 124/67; PULSE 84; RESP 18; TEMP 36.28068; O2SAT 97
[2024-03-07 04:00] VITALS: BP 124/73; PULSE 79; RESP 18; TEMP 36.3918; O2SAT 97
[2024-03-07] MEDS ORDERED: APIX5TAB MT (07:10)
[2024-03-07 08:00] VITALS: BP 143/67; PULSE 87; RESP 18; TEMP 36.55848; O2SAT 96
[2024-03-07 12:00] VITALS: BP 131/67; PULSE 85; RESP 17; TEMP 36.72516; O2SAT 96
[2024-03-07 16:00] VITALS: BP 131/76; PULSE 91; RESP 17; TEMP 36.78072; O2SAT 95
[2024-03-07 20:00] VITALS: BP 125/62; PULSE 91; RESP 18; TEMP 37.89192; O2SAT 96
[2024-03-07] MEDS: ASCORBIC ACID 250 MG TABLET PO SCH (20:38)
[2024-03-07] MEDS: FERROUS SULFATE 325MG TABLET PO SCH (20:38)
[2024-03-08] VITALS (7 sets, daily range): BP systolic 94–142; BP diastolic 55–74; PULSE 69–102; RESP 17–26; TEMP 36.44736–37.39188; O2SAT 87–98
[2024-03-08] MEDS ORDERED: LEVOTHYROXINE SODIUM 25MCG TABLET PO SCH (07:40)
[2024-03-08] MEDS: PANTOPRAZOLE 40MG DR TABLET PO SCH (07:40)
[2024-03-08 07:58] LABS: CHLORIDE 113 mEq/L (98-107); POTASSIUM 2.9 mEq/L (3.5-5.1); SODIUM 145 mEq/L (136-145)
[2024-03-08 07:59] LABS: CALCIUM 7.4 mg/dL (8.7-10.4); CARBON DIOXIDE 27 mEq/L (21-32)
[2024-03-08 08:04] LABS: GLUCOSE 102 mg/dL (70-105); UREA NITROGEN BLOOD 17 mg/dL (9-23)
[2024-03-08 08:05] LABS: THYROID STIMULATING HORMONE 4.26 uIU/mL (0.55-4.78)
[2024-03-08 08:07] LABS: PHOSPHORUS 1.7 mg/dL (2.5-4.9)
[2024-03-08 08:08] LABS: CREATININE 0.4 mg/dL (0.6-1.0)
[2024-03-08 08:33] LABS: HEMATOCRIT. 31.5 % (36.0-48.0); HEMOGLOBIN. 10.3 g/dL (12.0-16.0); MEAN CORPUSCULAR HEMOGLOBIN 31.6 pg (28.0-32.0); MEAN CORPUSCULAR HGB CONC 32.8 g/dL (31.0-37.0); MEAN CORPUSCULAR VOLUME 96.3 fL (81.0-99.0); MEAN PLATELET VOLUME 10.1 fl (7.4-10.4); PLATELET 231 x1000/uL (130-400); RED BLOOD CELL COUNT 3.27 mill/uL (4.2-5.4); WHITE BLOOD COUNT 11.1 x1000/uL (4.5-11.0)
[2024-03-08 08:42] LABS: DIFFERENTIAL COMMENT 1
[2024-03-08] MEDS: POTASSIUM CHLORIDE 20MEQ/PACKET PO NR (16:04)
[2024-03-08 17:45] LABS: ANISOCYTOSIS 1+; PLATELET ESTIMATE NORMAL
[2024-03-09] VITALS (8 sets, daily range): BP systolic 114–138; BP diastolic 49–70; PULSE 64–96; RESP 16–24; TEMP 35.5584–37.00296; O2SAT 95–99
[2024-03-09] MEDS: PANTOPRAZOLE SODIUM 40 MG/VIAL IV SCH (10:09)
[2024-03-09] MEDS: ENOXAPARIN 40MG/0.4ML SYR SUBCUT SCH (10:10)
[2024-03-09] MEDS: ACETYLCYSTEINE 200MG/ML 20% VIAL 4ML INH SCH (14:19)
[2024-03-09] MEDS: IPRATROPIUM/ALBUTEROL 0.5-3(2.5)MG/3ML NEB HHN SCH (14:25)
[2024-03-10] VITALS (9 sets, daily range): BP systolic 99–129; BP diastolic 42–67; PULSE 60–75; RESP 17–20; TEMP 36.00288–36.72516; O2SAT 99–100
[2024-03-11] VITALS (8 sets, daily range): BP systolic 105–115; BP diastolic 48–63; PULSE 62–79; RESP 16–20; TEMP 36.33624–36.9474; O2SAT 97–100
[2024-03-11] MEDS: ACETAMINOPHEN 325MG TABLET PO PRN (08:56)
[2024-03-11 11:30] LABS: BASOPHILS % 0.3 % (0.0-2.0); EOSINOPHILS % 1.1 % (0.0-5.0); HEMATOCRIT. 28.7 % (36.0-48.0); HEMOGLOBIN. 9.2 g/dL (12.0-16.0); LYMPHOCYTES % 9.4 % (20.0-50.0); MEAN CORPUSCULAR HEMOGLOBIN 32.2 pg (28.0-32.0); MEAN CORPUSCULAR HGB CONC 32.2 g/dL (31.0-37.0); MEAN CORPUSCULAR VOLUME 99.8 fL (81.0-99.0); MEAN PLATELET VOLUME 9.7 fl (7.4-10.4); MONOCYTES % 9.9 % (2.0-8.0); NEUTROPHILS % 79.3 % (40.0-76.0); PLATELET 259 x1000/uL (130-400); RED BLOOD CELL COUNT 2.87 mill/uL (4.2-5.4); RED CELL DISTRIBUTION WIDTH 22.2 % (11.6-14.6); WHITE BLOOD COUNT 5.5 x1000/uL (4.5-11.0)
[2024-03-11 11:49] LABS: CARBON DIOXIDE 32 mEq/L (21-32); CHLORIDE 109 mEq/L (98-107); POTASSIUM 3.8 mEq/L (3.5-5.1); SODIUM 144 mEq/L (136-145)
[2024-03-11 11:50] LABS: CALCIUM 7.4 mg/dL (8.7-10.4)
[2024-03-11 11:55] LABS: CREATININE 0.5 mg/dL (0.6-1.0); GLUCOSE 185 mg/dL (70-105); UREA NITROGEN BLOOD 15 mg/dL (9-23)
[2024-03-11 11:57] LABS: DIFFERENTIAL COMMENT 1; PHOSPHORUS 2.2 mg/dL (2.5-4.9)
[2024-03-11] MEDS: IPRATROPIUM/ALBUTEROL 0.5-3(2.5)MG/3ML NEB HHN SCH (19:54)
[2024-03-11] MEDS: ACETYLCYSTEINE 200MG/ML 20% VIAL 4ML INH SCH (19:55)
[2024-03-12] VITALS (10 sets, daily range): BP systolic 102–139; BP diastolic 43–58; PULSE 20–97; RESP 14–20; TEMP 36.3918–37.00296; O2SAT 95–100
[2024-03-12 08:04] LABS: CARBON DIOXIDE 34 mEq/L (21-32); CHLORIDE 109 mEq/L (98-107); POTASSIUM 4.2 mEq/L (3.5-5.1); SODIUM 145 mEq/L (136-145)
[2024-03-12 08:05] LABS: CALCIUM 7.6 mg/dL (8.7-10.4)
[2024-03-12 08:09] LABS: CREATININE 0.5 mg/dL (0.6-1.0)
[2024-03-12 08:10] LABS: GLUCOSE 165 mg/dL (70-105); UREA NITROGEN BLOOD 23 mg/dL (9-23)
[2024-03-12 08:30] LABS: BASOPHILS % 0.4 % (0.0-2.0); DIFFERENTIAL COMMENT 0; EOSINOPHILS % 1.4 % (0.0-5.0); HEMOGLOBIN. 9.2 g/dL (12.0-16.0); LYMPHOCYTES % 15.1 % (20.0-50.0); MEAN CORPUSCULAR HGB CONC 31.8 g/dL (31.0-37.0); MEAN CORPUSCULAR VOLUME 100.8 fL (81.0-99.0); MEAN PLATELET VOLUME 9.7 fl (7.4-10.4); MONOCYTES % 9.5 % (2.0-8.0); NEUTROPHILS % 73.6 % (40.0-76.0); PLATELET 292 x1000/uL (130-400); RED BLOOD CELL COUNT 2.88 mill/uL (4.2-5.4); RED CELL DISTRIBUTION WIDTH 21.7 % (11.6-14.6); WHITE BLOOD COUNT 5.8 x1000/uL (4.5-11.0)
[2024-03-12 09:37] LABS: PHOSPHORUS 2.5 mg/dL (2.5-4.9)
[2024-03-13] VITALS (9 sets, daily range): BP systolic 95–138; BP diastolic 32–60; PULSE 71–93; RESP 16–20; TEMP 36.28068–37.28076; O2SAT 92–100
[2024-03-13 06:48] LABS: CARBON DIOXIDE 34 mEq/L (21-32); CHLORIDE 105 mEq/L (98-107); SODIUM 141 mEq/L (136-145)
[2024-03-13 06:49] LABS: CALCIUM 7.7 mg/dL (8.7-10.4)
[2024-03-13 06:53] LABS: CREATININE 0.5 mg/dL (0.6-1.0)
[2024-03-13 06:54] LABS: GLUCOSE 186 mg/dL (70-105); UREA NITROGEN BLOOD 29 mg/dL (9-23)
[2024-03-13 07:43] LABS: HEMATOCRIT 27.5 % (36.0-48.0); MEAN CORPUSCULAR HEMOGLOBIN 32.5 pg (28.0-32.0); MEAN CORPUSCULAR HGB CONC 32.8 g/dL (31.0-37.0); MEAN CORPUSCULAR VOLUME 99.2 fL (81.0-99.0); PLATELET 293 x1000/uL (130-400); RED BLOOD CELL COUNT 2.77 mill/uL (4.2-5.4); RED CELL DISTRIBUTION WIDTH 22.3 % (11.6-14.6); WHITE BLOOD COUNT 7.5 x1000/uL (4.5-11.0)
[2024-03-14] VITALS (10 sets, daily range): BP systolic 90–107; BP diastolic 27–70; PULSE 74–108; RESP 16–22; TEMP 35.8362–37.89192; O2SAT 93–99
[2024-03-14 08:27] LABS: CHLORIDE 105 mEq/L (98-107); POTASSIUM 4.1 mEq/L (3.5-5.1); SODIUM 143 mEq/L (136-145)
[2024-03-14 08:28] LABS: CALCIUM 7.6 mg/dL (8.7-10.4); CARBON DIOXIDE 34 mEq/L (21-32)
[2024-03-14 08:33] LABS: CREATININE 0.6 mg/dL (0.6-1.0); GLUCOSE 200 mg/dL (70-105); UREA NITROGEN BLOOD 31 mg/dL (9-23)
[2024-03-14 08:35] LABS: BASOPHILS % 0.5 % (0.0-2.0); DIFFERENTIAL COMMENT 0; EOSINOPHILS % 0.5 % (0.0-5.0); HEMATOCRIT. 25.8 % (36.0-48.0); HEMOGLOBIN. 8.1 g/dL (12.0-16.0); LYMPHOCYTES % 7.3 % (20.0-50.0); MEAN CORPUSCULAR HEMOGLOBIN 31.6 pg (28.0-32.0); MEAN CORPUSCULAR HGB CONC 31.5 g/dL (31.0-37.0); MEAN CORPUSCULAR VOLUME 100.4 fL (81.0-99.0); MEAN PLATELET VOLUME 10.1 fl (7.4-10.4); MONOCYTES % 4.7 % (2.0-8.0); PLATELET 282 x1000/uL (130-400); RED BLOOD CELL COUNT 2.57 mill/uL (4.2-5.4); RED CELL DISTRIBUTION WIDTH 21.8 % (11.6-14.6); WHITE BLOOD COUNT 9.9 x1000/uL (4.5-11.0)
[2024-03-14] MEDS: MIDODRINE HCL 5MG TABLET PO PRN (20:26)
[2024-03-14] MEDS: SODIUM CHLORIDE 0.9% 1,000 ML IV ONE (21:58)
[2024-03-15] VITALS (8 sets, daily range): BP systolic 99–148; BP diastolic 38–63; PULSE 66–102; RESP 17–20; TEMP 36.44736–36.78072; O2SAT 90–100
[2024-03-15] MEDS: DEXTROSE 50% WATER 50ML SYRINGE IV PRN (17:44)
[2024-03-15] MEDS: DEXT 5%/0.45% NACL 1000ML 1,000 ML IV SCH (23:04)
[2024-03-16] VITALS (9 sets, daily range): BP systolic 96–134; BP diastolic 42–76; PULSE 68–89; RESP 15–19; TEMP 36.16956–36.50292; O2SAT 98–100
[2024-03-16 03:42] LABS: BASOPHILS % 0.5 % (0.0-2.0); EOSINOPHILS % 1.4 % (0.0-5.0); HEMATOCRIT. 29.4 % (36.0-48.0); HEMOGLOBIN. 9.6 g/dL (12.0-16.0); LYMPHOCYTES % 9.9 % (20.0-50.0); MEAN CORPUSCULAR HEMOGLOBIN 32.6 pg (28.0-32.0); MEAN CORPUSCULAR HGB CONC 32.8 g/dL (31.0-37.0); MEAN CORPUSCULAR VOLUME 99.4 fL (81.0-99.0); MEAN PLATELET VOLUME 9.3 fl (7.4-10.4); MONOCYTES % 7.1 % (2.0-8.0); NEUTROPHILS % 81.1 % (40.0-76.0); PLATELET 306 x1000/uL (130-400); RED BLOOD CELL COUNT 2.95 mill/uL (4.2-5.4); RED CELL DISTRIBUTION WIDTH 21.1 % (11.6-14.6); WHITE BLOOD COUNT 6.4 x1000/uL (4.5-11.0)
[2024-03-16 03:49] LABS: CHLORIDE 108 mEq/L (98-107); POTASSIUM 4.2 mEq/L (3.5-5.1); SODIUM 144 mEq/L (136-145)
[2024-03-16 03:50] LABS: CARBON DIOXIDE 31 mEq/L (21-32)
[2024-03-16 03:55] LABS: CREATININE 0.5 mg/dL (0.6-1.0); GLUCOSE 130 mg/dL (70-105); UREA NITROGEN BLOOD 18 mg/dL (9-23)
[2024-03-16 04:03] LABS: INR 1.1; PROTHROMBIN TIME 12.2 sec (9.6-11.0)
[2024-03-16] MEDS ORDERED: CEFAZOLIN 1000MG PREMIX 50ML IV NR (06:00)
[2024-03-16] MEDS ORDERED: CEFAZOLIN SODIUM 1000MG/VIAL IV ONE (11:30)
[2024-03-16] MEDS ORDERED: FENTANYL CITRATE/PF 50MCG/ML 2ML VIAL IV PRN (11:45)
[2024-03-16] MEDS ORDERED: ONDANSETRON HCL 4MG/2ML INJ IV PRN (11:45)
[2024-03-16] MEDS ORDERED: LIDOCAINE HCL 1% 10 MG/ML 10ML VIAL ONE (11:58)
[2024-03-16] MEDS ORDERED: PROPOFOL 200MG/20ML VIAL IV ONE (11:58)
[2024-03-16] MEDS ORDERED: EPHEDRINE SULFATE 50MG/ML VIAL ONE (12:20)
[2024-03-16] MEDS ORDERED: CEFAZOLIN SODIUM 1000MG/VIAL ONE (13:08)
[2024-03-17] VITALS: BP 99/45; PULSE 70; RESP 17; TEMP 36.61404; O2SAT 99
[2024-03-17 04:00] VITALS: BP 104/48; PULSE 73; RESP 18; TEMP 36.55848; O2SAT 95
[2024-03-17 08:00] VITALS: BP 102/56; PULSE 69; RESP 19; TEMP 36.28068; O2SAT 99
[2024-03-17 12:00] VITALS: BP 105/58; PULSE 71; RESP 19; TEMP 36.55848; O2SAT 99
[2024-03-17 16:00] VITALS: BP 106/59; PULSE 66; RESP 18; TEMP 36.78072; O2SAT 99
[2024-03-17 20:00] VITALS: BP 128/56; PULSE 73; RESP 18; TEMP 36.55848; O2SAT 97
[2024-03-18] VITALS: BP 126/51; PULSE 85; RESP 18; TEMP 36.78072; O2SAT 99
[2024-03-18 04:00] VITALS: BP 125/55; PULSE 80; RESP 18; TEMP 37.00296; O2SAT 98
[2024-03-18 08:00] VITALS: BP 136/68; PULSE 98; RESP 16; TEMP 37.39188; O2SAT 98
[2024-03-18 12:00] VITALS: BP 157/82; PULSE 105; RESP 20; TEMP 38.39196; O2SAT 100
[2024-03-18 16:00] VITALS: BP 114/58; PULSE 88; RESP 16; TEMP 37.89192; O2SAT 100
[2024-03-18] MEDS ORDERED: LIP40 PO (16:32)
[2024-03-18] MEDS ORDERED: PANT40SU PO (16:32)
[2024-03-18] MEDS ORDERED: FERR-63 PO (16:32)
[2024-03-18 20:00] VITALS: BP 127/54; PULSE 81; RESP 19; TEMP 37.72524; O2SAT 100
[2024-03-19] VITALS: BP 100/72; PULSE 89; RESP 22; TEMP 36.33624; O2SAT 98
== END 2024-03-19 04:45 | DRG 853 ==
LOC: ER 18:34 → EDBEDREQ 20:48 → MICUSO 02-27 01:51 → 7WST 03-04 15:21 → 8EST 03-09 17:11 → 6WST 03-11 20:32 → 8EST 03-11 20:34
PROVIDERS: ADMIT Internal Medicine; ATTEND Internal Medicine
PROC: 5A1945Z Respiratory Ventilation, 24-96 Consecutive Hours (ICD-10-PCS; 2024-02-26)
PROC: 0BH17EZ Insertion of Endotracheal Airway into Trachea, Via Natural or Artificial Opening (ICD-10-PCS; 2024-02-26)
PROC: 06HY33Z Insertion of Infusion Device into Lower Vein, Percutaneous Approach (ICD-10-PCS; 2024-02-26)
PROC: B54BZZA Ultrasonography of Right Lower Extremity Veins, Guidance (ICD-10-PCS; 2024-02-26)
PROC: 30233N1 Transfusion of Nonautologous Red Blood Cells into Peripheral Vein, Percutaneous Approach (ICD-10-PCS; 2024-02-28)
PROC: 02HV33Z Insertion of Infusion Device into Superior Vena Cava, Percutaneous Approach (ICD-10-PCS; 2024-02-29)
PROC: B548ZZA Ultrasonography of Superior Vena Cava, Guidance (ICD-10-PCS; 2024-02-29)
PROC: 4A00X4Z Measurement of Central Nervous Electrical Activity, External Approach (ICD-10-PCS; 2024-03-08)
PROC: 0JB70ZZ Excision of Back Subcutaneous Tissue and Fascia, Open Approach (ICD-10-PCS; principal; 2024-03-09)
PROC: 0DH68UZ Insertion of Feeding Device into Stomach, Via Natural or Artificial Opening Endoscopic (ICD-10-PCS; 2024-03-16)
PROC: 5A12012 Performance of Cardiac Output, Single, Manual (ICD-10-PCS; 2024-03-19)
DX: A41.9 Sepsis, unspecified organism (principal); E43 Unspecified severe protein-calorie malnutrition; L89.154 Pressure ulcer of sacral region, stage 4; J96.01 Acute respiratory failure with hypoxia; J69.0 Pneumonitis due to inhalation of food and vomit; I21.A1 Myocardial infarction type 2; G92.8 Other toxic encephalopathy; R65.21 Severe sepsis with septic shock; J15.1 Pneumonia due to Pseudomonas; I63.89 Other cerebral infarction; E87.20 Acidosis, unspecified; N39.0 Urinary tract infection, site not specified; N17.9 Acute kidney failure, unspecified; J44.0 Chronic obstructive pulmonary disease with (acute) lower respiratory infection; Z68.1 Body mass index [BMI] 19.9 or less, adult; I46.9 Cardiac arrest, cause unspecified; E11.65 Type 2 diabetes mellitus with hyperglycemia; Q90.9 Down syndrome, unspecified; Z74.01 Bed confinement status; D53.9 Nutritional anemia, unspecified; D72.819 Decreased white blood cell count, unspecified; D75.838 Other thrombocytosis; E87.6 Hypokalemia; E83.39 Other disorders of phosphorus metabolism; R00.1 Bradycardia, unspecified; N18.9 Chronic kidney disease, unspecified; E83.42 Hypomagnesemia; F03.90 Unspecified dementia, unspecified severity, without behavioral disturbance, psychotic disturbance, mood disturbance, and anxiety; G40.909 Epilepsy, unspecified, not intractable, without status epilepticus; R13.12 Dysphagia, oropharyngeal phase; R62.7 Adult failure to thrive; Z79.899 Other long term (current) drug therapy; Z86.711 Personal history of pulmonary embolism; Z86.73 Personal history of transient ischemic attack (TIA), and cerebral infarction without residual deficits; Z87.442 Personal history of urinary calculi; Z88.0 Allergy status to penicillin; Z88.1 Allergy status to other antibiotic agents; Z79.01 Long term (current) use of anticoagulants
CPT/HCPCS: 31500; 31720; 36415; 36573; 36600; 70551; 71045; 71275; 76700; 80048; 80061; 80076; 80202; 81003; 82040; 82375; 82550; 82607; 82728; 82746; 82805; 82962; 83036; 83540; 83550; 83605; 83735; 83880; 84100; 84134; 84145; 84439; 84443; 84484; 85014; 85018; 85025; 85027; 85379; 86376; 86850; 86900; 86920; 87070; 87077; 87186; 92610; 92950; 93005; 93306; 93880; 93970; 93971; 94002; 94003; 94070; 94640; 94664; 94667; 94760; 95816; 97110; 97163; 97167; 98960; 99291; A4606; A4663; A6261; C1725; J0456; J0690; J0692; J1265; J1650; J1720; J1815; J2003; J2185; J2470; J2704; J3010; J3370; J3475; J3480; J3490; J7030; J7042; J7060; J7120; J7608; P9016; P9047; Q9967